=== PATIENT | female | born 1955 | race Caucasian/White ===

== ENCOUNTER 2017-01-14 18:33 | Emergency (ER) | payer OTHER ==
[2017-01-14 18:35] VITALS: BP 172/99; PULSE 68; RESP 18; TEMP 98.3; O2SAT 98
[2017-01-14] MEDS ORDERED: LISI2.5T3 PO (18:47)
[2017-01-14] MEDS ORDERED: THYR15 PO (18:47)
--- NOTE | 2017-01-14 19:24 | PD ---
HPI Chief Complaint: Cold / Flu Symptoms Time Seen by Provider: 19:24 Travel History International Travel<30 days: No Contact w/Intl Traveler<30days: No Traveled to known affect area: No History of Present Illness HPI 61-year-old female with PMH of hypertension presents to the ED for evaluation of one month history of nonproductive cough and 2 week history of sinus congestion and clear rhinorrhea. Patient states that over the course of last few days her throat has become very sore. She endorses headache this morning that resolved with treatment with ibuprofen. She denies fever, chills, ear pain , abdominal pain, nausea or vomiting. Denies history of seasonal allergies. She states that both her and son are ill. PFSH Past Medical History Cancer: Yes (BREAST) Diminished Hearing: No Hypertension: Yes Radiation Therapy: Yes Thyroid Disease: Yes Influenza Vaccination: No ?: Not Past Surgical History Hysterectomy: Yes Other Surgery: Yes (LEFT LUMPECTOMY) Social History Alcohol Use: Yes (OCC) Tobacco Use: No Allergies-Medications (Allergen,Severity, Reaction): Coded Allergies: No Known Allergies (Unverified , 01/14/17) Reported Meds & Prescriptions Reported Meds & Active Scripts Active Lidocaine Viscous Liq 2 % Liqd 5 Ml SWISH-SWAL DAILY PRN Augmentin (Amoxicillin-Clavulanate) 875-125 mg Tab 875 Mg PO BID not for use in CrCl <30 ml/min. Reported [place] Thyroid (Thyroid) 15 Mg Tab 0 PO DAILY Lisinopril 2.5 Mg Tab 0 PO DAILY Review of Systems Except as stated in HPI: all other systems reviewed are Neg Physical Exam Narrative GENERAL: Well-nourished, well-developed nontoxic appearing white female in no acute distress SKIN: Warm and dry. HEAD: Normocephalic. Atraumatic. Mild tenderness to palpation of the facial sinuses. EYES: No scleral icterus. No injection or drainage. PERRLA. EOMI. ENT: Pearly wilson tympanic membranes bilaterally. Hair-like foreign body in the left ear canal. Nasal mucosa is moist. Oropharynx with mild posterior erythema. No visible exudates or edema. Uvula midline. NECK: Supple, trachea midline. No JVD. Positive anterior cervical lymphadenopathy. CARDIOVASCULAR: Regular rate and rhythm without murmurs, gallops, or rubs. No carotid bruits. 2+ DP and radial pulses bilaterally. RESPIRATORY: Breath sounds clear and equal bilaterally. No accessory muscle use. GASTROINTESTINAL: Abdomen soft, non-tender, nondistended. + Bowel sounds MUSCULOSKELETAL: No cyanosis, or edema. Full, active range of motion. Strength 5/5. Neurovascularly intact. BACK: Nontender without obvious deformity. No CVA tenderness. Data Data Last Documented VS Vital Signs Date Time Temp Pulse Resp B/P Pulse Ox O2 Delivery O2 Flow Rate FiO2 01/14/17 18:35 98.3 68 18 172/99 98 Orders Group A Rapid Strep Screen (01/14/17 19:47) Strep Culture (Group A) (01/14/17 19:32) Amoxicil-Clavulanate (Augmentin) (01/14/17 20:45) Ibuprofen (Motrin) (01/14/17 20:45) MDM Medical Decision Making Medical Screen Exam Complete: Yes Emergency Medical Condition: Yes Differential Diagnosis Viral syndrome versus pharyngitis versus strep pharyngitis versus sinusitis versus other Narrative Course 61-year-old female with PMH of hypertension presents to the ED for evaluation of one month history of nonproductive cough and 2 week history of sinus congestion and clear rhinorrhea. 2 day history of sore throat. She endorses headache this morning that resolved with treatment with ibuprofen. She denies fever, chills, ear pain, abdominal pain, nausea or vomiting. Vitals reviewed. Physical exam reveals tenderness to palpation of the facial sinuses, mild posterior pharyngeal erythema, positive anterior cervical lymphadenopathy on the hair like foreign body in the left external ear canal. The external canal was flushed with a 50-50 mix of peroxide and warm water. A 1 cm coarse hair was removed. Patient tolerated procedure well. Rapid strep swab swab negative. We'll treat for sinusitis. Patient was prescribed Augmentin 875 twice a day 10 days. First dose plus a dose of ibuprofen were administered in the ED. Patient is instructed to take medication as prescribed, follow up with her primary care provider this week. She indicated understanding of discharge instructions and is agreeable to the plan of care. She is stable and discharged home. Diagnosis Primary Impression: Sinusitis Qualified Code: J01.10 - Acute frontal sinusitis, recurrence not specified Additional Impression: Non-penetrating foreign body in left ear canal Qualified Code: S00.452A - Non-penetrating foreign body in left ear canal, initial encounter Referrals: Ear / Nose / Throat Specialist Patient Instructions: General Instructions, Sinusitis (ED) Additional Instructions: Rest, hydrate. Take antibiotics as prescribed, even if your symptoms resolve during the course of treatment. 600 milligram ibuprofen 3 times a day for pain and fevers. Viscous lidocaine when necessary for sore throat. Follow-up with the survey research teacher. Return to the ED for any urgent or emergent medical condition. Med/Other Pt SpecificInfo: Prescription(s) given Scripts Lidocaine Viscous Liq 2 % Liqd5 Ml SWISH-SWAL DAILY PRN (PAIN) #1 BOTTLE Ref 0 Prov:Mars Trinh MD 01/14/17 Amoxicillin-Clavulanate (Augmentin)875-125 mg [id number] Mg PO BID #10 TAB Ref 0 not for use in CrCl <30 ml/min. Prov:Mars Trinh MD 01/14/17 Disposition: 01 DISCHARGE HOME Condition: Stable Dolly Fulton Jan 14, 2017 19:24
[2017-01-14] MEDS ORDERED: LIDO1SOL8 SWISH-SWAL (20:35)
[2017-01-14] MEDS ORDERED: AUGM875T PO (20:35)
[2017-01-14] MEDS ORDERED: AMOXICILLIN/CLAVULANATE K 875 MG TAB PO ONE (20:45)
[2017-01-14] MEDS ORDERED: IBUPROFEN 600 MG TAB PO ONE (20:45)
== END 2017-01-14 20:45 | disposition home or self-care (01) ==
LOC: PHEFT 18:33
DX: J01.10 Acute frontal sinusitis, unspecified (principal); S00.452A Superficial foreign body of left ear, initial encounter; T16.1XXA Foreign body in right ear, initial encounter; X58.XXXA Exposure to other specified factors, initial encounter; Y93.9 Activity, unspecified; Y92.9 Unspecified place or not applicable; Y99.9 Unspecified external cause status
CPT/HCPCS: 87081; 87880; 99283